=== PATIENT | male | born 1995 | race Two or more races ===

== ENCOUNTER 2022-03-03 07:34 | Emergency (ER) | payer SELFPAY ==
[~2022-03-03] VITALS: Ht 188 cm; Wt 90.9 kg
[2022-03-03 08:57] VITALS: BP 123/79
[2022-03-03] MEDS ORDERED: ALBU8HFA PO (09:34)
[2022-03-03] MEDS ORDERED: BENZ-38 PO (09:34)
[2022-03-03] MEDS ORDERED: GUAI400T92 PO (09:34)
== END 2022-03-03 10:10 | disposition home or self-care (01) ==
LOC: ER 07:35
DX: R05.9 Cough, unspecified (principal); R09.89 Other specified symptoms and signs involving the circulatory and respiratory systems
CPT/HCPCS: 71046; 93005; 99283